=== PATIENT | male | born 2000 | race Caucasian/White ===

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

== ENCOUNTER 2020-11-01 12:21 | Emergency (ER) | payer MEDICAID ==
--- NOTE | 2020-11-01 12:47 | EDM.PDOC ---
ED HPI GENERAL MEDICAL PROBLEM - General Chief Complaint: General Stated Complaint: ABDOMINAL PAIN Time Seen by Provider: 11/01/20 12:41 Source of Information: Reports: Patient, RN Notes Reviewed History Limitations: Reports: No Limitations - History of Present Illness INITIAL COMMENTS - FREE TEXT/NARRATIVE: 20-year-old gentleman presents emergency department with a complaint of diarrhea, and the diarrhea for about 3 to 4 days pain was worse a couple days ago it has improved somewhat some nausea one bout of fevers 2 days ago. 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 - Past Surgical History HEENT Surgical History: Reports: Adenoidectomy, Tonsillectomy GI Surgical History: Reports: Appendectomy, Cholecystectomy Social & Family History - Tobacco Use Tobacco Use Status *Q: Never Tobacco User - Caffeine Use Caffeine Use: Reports: Soda - Living Situation & Occupation Living situation: Reports: Single Occupation: Student ED ROS GENERAL - Review of Systems Review Of Systems: See Below Constitutional: Reports: Fever HEENT: Reports: No Symptoms Respiratory: Reports: No Symptoms Cardiovascular: Reports: No Symptoms GI/Abdominal: Reports: Abdominal Pain, Diarrhea, Nausea : Reports: No Symptoms ED EXAM, GENERAL - Physical Exam Exam: See Below Exam Limited By: No Limitations General Appearance: Alert, WD/WN, No Apparent Distress Respiratory/Chest: No Respiratory Distress, Lungs Clear, Normal Breath Sounds, No Accessory Muscle Use, Chest Non-Tender Cardiovascular: Regular Rate, Rhythm, No Murmur GI/Abdominal: Soft, Non-Tender Course - Vital Signs Last Recorded V/S: Last Vital Signs Temp 98.0 F 11/01/20 12:39 Pulse 96 11/01/20 12:39 Resp 16 11/01/20 12:39 BP 127/77 11/01/20 12:39 Pulse Ox 96 11/01/20 12:39 - Orders/Labs/Meds Orders: Active Orders 24 hr Category Date Time Status Peripheral IV Care [RC] . DIRECTED Care 11/01/20 13:44 Active Abdomen 1V Upright [CR] Urgent Exams 11/01/20 12:45 Taken CULTURE STOOL + SHIGATOX [RM] Stat Lab 11/01/20 14:59 Received Potassium Chloride 20 meq Med 11/01/20 14:00 Active Lidocaine 1% [Xylocaine 1%] 2 ml Sodium Chloride 0.9% [Normal Saline] 100 ml IV ONETIME Sodium Chloride 0.9% [Saline Flush] Med 11/01/20 13:44 Active 10 ml FLUSH ASDIRECTED PRN Peripheral IV Insertion Adult [OM.PC] Urgent Oth 11/01/20 13:44 Ordered Medication Orders Potassium Chloride 20 meq/Lidocaine HCl 2 ml/ Sodium Chloride 112 mls @ 50 mls/hr IV ONETIME ONE Stop: 11/01/20 16:14 Last Admin: 11/01/20 14:00 Dose: 50 mls/hr Documented by: MICAELA Sodium Chloride (Saline Flush) 10 ml FLUSH ASDIRECTED PRN PRN Reason: Keep Vein Open Labs: Laboratory Tests 11/01/20 11/01/20 11/01/20 Range/Units 12:52 12:52 12:52 WBC 4.8 (4.5-11.0) K/uL RBC 5.57 (4.30-5.90) M/uL Hgb 15.0 (12.0-15.0) g/dL Hct 44.2 (40.0-54.0) % MCV 79 L (80-98) fL MCH 27 (27-31) pg MCHC 34 (32-36) % Plt Count 158 (150-400) K/uL Neut % (Auto) 60 (36-66) % Lymph % (Auto) 23 L (24-44) % [place] % (Auto) 17 H (2-6) % Eos % (Auto) 1 L (2-4) % Baso % (Auto) 1 (0-1) % Sodium 139 L (140-148) mmol/L Potassium 2.9 L* (3.6-5.2) mmol/L Chloride 102 (100-108) mmol/L Carbon Dioxide 27 (21-32) mmol/L Anion Gap 12.9 (5.0-14.0) mmol/L BUN 15 (7-18) mg/dL Creatinine 1.0 (0.8-1.3) mg/dL Est Cr Clr Drug Dosing 105.45 mL/min Estimated GFR (MDRD) > 60 (>60) Glucose 92 (74-106) mg/dL Lactic Acid 1.3 (0.4-2.0) mmol/L Calcium 8.3 L (8.5-10.1) mg/dL Total Bilirubin 0.4 (0.2-1.0) mg/dL AST 19 (15-37) U/L ALT 23 (12-78) U/L Alkaline Phosphatase 69 (46-116) U/L Total Protein 6.9 (6.4-8.2) g/dL Albumin 3.8 (3.4-5.0) g/dL Globulin 3.1 (2.3-3.5) g/dL Albumin/Globulin Ratio 1.2 (1.2-2.2) Lipase 62 L (73-393) U/L Meds: Medications Generic Name Dose Route Start Last Admin Trade Name Freq PRN Reason Stop Dose Admin Potassium Chloride 20 meq/ 112 mls @ 50 mls/hr 11/01/20 14:00 11/01/20 14:00 Lidocaine HCl 2 ml/ Sodium IV 11/01/20 16:14 50 mls/hr Chloride ONETIME ONE Administration Sodium Chloride 10 ml 11/01/20 13:44 Saline Flush FLUSH ASDIRECTED PRN Keep Vein Open Discontinued Medications Generic Name Dose Route Start Last Admin Trade Name Freq PRN Reason Stop Dose Admin Lactated Ringer's 1,000 mls @ 999 mls/hr 11/01/20 13:44 11/01/20 14:00 Ringers, Lactated IV 11/01/20 14:44 999 mls/hr BOLUS ONE Administration Departure - Departure Time of Disposition: 15:23 Disposition: Home, Self-Care 01 Condition: Fair Clinical Impression: Gastroenteritis - Discharge Information Instructions: Viral Gastroenteritis, Adult, [id number] Referrals: Rowdy Nicolas MD [Primary Care Provider] - Forms: ED Department Discharge Additional Instructions: Continue to push fluids, could try Imodium if needed, please followup with your primary care provider in 3-5 days if not better, please call return to the emergency department with worsening of symptoms. Sepsis Event Note (ED) - Evaluation Sepsis Screening Result: No Definite Risk - Focused Exam Vital Signs: Vital Signs Temp Pulse Resp BP Pulse Ox 11/01/20 12:39 98.0 F 96 16 127/77 96 11/01/20 12:31 98.0 F 96 16 127/77 96 - My Orders Last 24 Hours: My Active Orders 11/01/20 12:45 Abdomen 1V Upright [CR] Urgent 11/01/20 13:44 Peripheral IV Care [RC] . DIRECTED Sodium Chloride 0.9% [Saline Flush] 10 ml FLUSH ASDIRECTED PRN Peripheral IV Insertion Adult [OM.PC] Urgent 11/01/20 14:00 Potassium Chloride 20 meq Lidocaine 1% [Xylocaine 1%] 2 ml Sodium Chloride 0.9% [Normal Saline] 100 ml IV ONETIME 11/01/20 14:59 CULTURE STOOL + SHIGATOX [RM] Stat - Assessment/Plan Last 24 Hours: My Active Orders 11/01/20 12:45 Abdomen 1V Upright [CR] Urgent 11/01/20 13:44 Peripheral IV Care [RC] . DIRECTED Sodium Chloride 0.9% [Saline Flush] 10 ml FLUSH ASDIRECTED PRN Peripheral IV Insertion Adult [OM.PC] Urgent 11/01/20 14:00 Potassium Chloride 20 meq Lidocaine 1% [Xylocaine 1%] 2 ml Sodium Chloride 0.9% [Normal Saline] 100 ml IV ONETIME 11/01/20 14:59 CULTURE STOOL + SHIGATOX [RM] Stat Plan: Assessment Acuity = acute Site and laterality = gastroenteritis Etiology = unknown Manifestations = diarrhea Location of injury = Home Lab values = CBC CMP unremarkable except for potassium low at 2.9 consistent with hypokalemia, stool culture shows no WBCs Plan Good improvement 1 L fluids potassium was replaced with 20 mEq IV, he is going to continue to push fluids follow-up primary care 3 to 5 days if not better This note was dictated using [employer] voice recognition software please call with any questions on syntax or grammar.
[2020-11-01] MEDS ORDERED: Lactated Ringers 1,000 ML IV ONE (13:44)
[2020-11-01] MEDS ORDERED: Sodium Chloride 0.9% 10 ML Syringe FLUSH PRN (13:44)
[2020-11-01] MEDS ORDERED: Potassium Chloride 20 MEQ, Lidocaine 1% 2 ML in Sodium Chloride 0.9% 100 ML IV ONE (14:00)
[2020-11-01] MEDS ORDERED: Potassium Chloride 20 MEQ, Lidocaine 1% 2 ML in Sodium Chloride 0.9% 100 ML IV SCH (14:00)
[2020-11-01 16:10] VITALS: BP 122/84; PULSE 69
--- NOTE | 2020-11-02 10:11 | CR ---
Abdomen 1V Upright CLINICAL HISTORY: Abdominal pain FINDINGS: No free air is identified. There are a few scattered air-fluid levels throughout the small bowel without significant distention. There are surgical clips in the right upper quadrant. There is a punctate density to the right of L4. This is seen only on one of the 2 images and may be artifactual. IMPRESSION: Nonspecific intestinal gas pattern
== END 2020-11-01 16:18 | disposition home or self-care (01) ==
LOC: JP.ED 12:21
DX: K52.9 Noninfective gastroenteritis and colitis, unspecified (principal)
CPT/HCPCS: 36415; 74018; 80053; 83605; 83690; 85025; 87046; 87899; 89055; 96365; 96366; 99283; 99284; J2001; J3480; J7120